=== PATIENT | female | born 1950 | race Caucasian/White ===

== ENCOUNTER 2017-10-03 11:16 | Emergency (ER) | payer BC, OTHER ==
[~2017-10-03] VITALS: Ht 160 cm; Wt 81.6 kg
[~2017-10-03 11:16] MED LIST: ASPI81TA27 PO; BACL20TA PO; CALC-437 OR; DESV50TA13 OR; GLYB2.5T8 PO; MULTCAP45 PO; MULTTAB61 PO; OMEP20CA74 PO; PROP60CA8 PO
[2017-10-03 11:32] VITALS: BP 146/89
== END 2017-10-03 13:11 | disposition home or self-care (01) ==
LOC: ER 11:16
DX: H10.31 Unspecified acute conjunctivitis, right eye (principal); J02.9 Acute pharyngitis, unspecified; E11.9 Type 2 diabetes mellitus without complications; I10 Essential (primary) hypertension; Z90.49 Acquired absence of other specified parts of digestive tract

== ENCOUNTER 2018-05-18 15:55 | Emergency (ER) | payer OTHER ==
[~2018-05-18] VITALS: Ht 160 cm; Wt 79.4 kg
[~2018-05-18 15:55] MED LIST changes: +PROP60CA34 PO; -PROP60CA8 PO
[2018-05-18 16:43] LABS: Basophils # (auto) 0 uL; Basophils % (auto) 0.2 % (0.0-2.0); Eosinophils # (auto) 0.1 uL; Eosinophils % (auto) 1.3 % (0.0-7.0); Hematocrit 46.9 % (36.0-46.0); Hemoglobin 16.1 g/dL (12.2-16.2); Lymphocytes # (auto) 1.1 uL; Lymphocytes % (auto) 17.8 % (10.0-50.0); Mean Corpuscular Hemoglobin 30.4 pg (28.0-32.0); Mean Corpuscular Hgb Conc. 34.4 g/dL (32.0-36.0); Mean Corpuscular Volume 88.3 fL (80.0-100.0); Monocytes # (auto) 0.5 uL; Monocytes % (auto) 8.3 % (0.0-12.0); Neutrophils # (auto) 4.6 uL; Neutrophils % (auto) 72.4 % (37.0-80.0); Nucleated Red Blood Cells % 0.1 %; Platelet Count (auto) 99 10^3/uL (140-450); Red Cell Distribution Width 14.3 % (11.8-14.3); White Blood Cell 6.3 10^3/uL (4.4-10.8)
[2018-05-18 16:59] LABS: Alanine Aminotransferase 63 U/L (13-56); Albumin 3.5 g/dL (3.4-5.0); Anion Gap 9 (5-15); Aspartate Aminotransferase 52 U/L (15-37); Blood Urea Nitrogen 11 mg/dL (7-18); Calcium 8.5 mg/dL (8.5-10.1); Carbon Dioxide 21 mmol/L (21-32); Chloride 108 mmol/L (98-107); GFR African American 126 mL/min; GFR Non-African American 104 mL/min; Glucose 154 mg/dL (74-106); Magnesium 2.3 mg/dL (1.6-2.6); Potassium 4.1 mmol/L (3.5-5.1); Sodium 138 mmol/L (136-145)
[2018-05-18 17:04] LABS: Alkaline Phosphatase 74 U/L (45-117); Bilirubin, Total 0.7 mg/dL (0.2-1.0); Total Protein 8.4 g/dL (6.4-8.2)
[2018-05-18 17:09] LABS: Urine Bacteria MANY /hpf (None Seen); Urine Blood 1+ /uL (Negative); Urine Specific Gravity 1.015 (1.001-1.035); Urine WBC 16 /hpf (0 - 5)
[2018-05-18] MEDS ORDERED: cefTRIAXone SOD 1,000 MG VL IM ONE (17:30)
[2018-05-18] MEDS ORDERED: LIDOCAINE 1% HCL (LOCAL ANESTH.) INJ 20ML MDV ONE (17:37)
[2018-05-18] MEDS ORDERED: LIDOCAINE 1% HCL (LOCAL ANESTH.) INJ 20ML MDV IJ ONE (18:00)
[2018-05-18 18:27] VITALS: BP 157/99
== END 2018-05-18 18:30 | disposition home or self-care (01) ==
LOC: ER 15:56
DX: J40 Bronchitis, not specified as acute or chronic (principal); N39.0 Urinary tract infection, site not specified; E11.9 Type 2 diabetes mellitus without complications; I10 Essential (primary) hypertension; Z90.49 Acquired absence of other specified parts of digestive tract
CPT/HCPCS: 36415; 71045; 80053; 81001; 83735; 84484; 85025; 93005; 96372; 99284; J0696; J2001

== ENCOUNTER 2019-02-13 06:10 | Inpatient (IN) | payer OTHER, MEDICARE ==
[~2019-02-13] VITALS: Ht 160 cm; Wt 79.8 kg
[~2019-02-13 06:10] MED LIST changes: +ASPI-404 PO; -ASPI81TA27 PO
[2019-02-13] MEDS ORDERED: SODIUM CHLORIDE 0.9% 1,000 ML IV ONE (07:13)
[2019-02-13] MEDS ORDERED: methylPREDNISolone SOD SUCC 125 MG/2 ML VL IV ONE (07:15)
[2019-02-13 08:00] LABS: Albumin 3.5 g/dL (3.4-5.0); Anion Gap 6 (5-15); Blood Urea Nitrogen 11 mg/dL (7-18); Calcium 8.8 mg/dL (8.5-10.1); Carbon Dioxide 22 mmol/L (21-32); Chloride 107 mmol/L (98-107); Glucose 154 mg/dL (74-106); Potassium 4.5 mmol/L (3.5-5.1); Sodium 135 mmol/L (136-145)
[2019-02-13 08:03] LABS: Alanine Aminotransferase 91 U/L (13-56); Aspartate Aminotransferase 102 U/L (15-37); BUN/Creatinine Ratio 15.1; GFR African American 102 mL/min; GFR Non-African American 85 mL/min
[2019-02-13 08:09] LABS: Alkaline Phosphatase 72 U/L (45-117); Bilirubin, Total 0.9 mg/dL (0.2-1.0); Total Protein 8.1 g/dL (6.4-8.2)
[2019-02-13 08:47] LABS: Basophils # (auto) 0 uL; Basophils % (auto) 0.3 % (0.0-2.0); Eosinophils # (auto) 0.3 uL; Eosinophils % (auto) 4.9 % (0.0-7.0); Hematocrit 43.5 % (36.0-46.0); Hemoglobin 14.7 g/dL (12.2-16.2); Lymphocytes # (auto) 1.2 uL; Lymphocytes % (auto) 20.2 % (10.0-50.0); Mean Corpuscular Hemoglobin 30.5 pg (28.0-32.0); Mean Corpuscular Hgb Conc. 33.7 g/dL (32.0-36.0); Mean Corpuscular Volume 90.5 fL (80.0-100.0); Monocytes # (auto) 0.6 uL; Monocytes % (auto) 10.9 % (0.0-12.0); Neutrophils # (auto) 3.7 uL; Neutrophils % (auto) 63.7 % (37.0-80.0); Platelet Count (auto) 75 10^3/uL (140-450); Red Blood Cells 4.81 10^6/uL (4.0-5.20); White Blood Cell 5.8 10^3/uL (4.4-10.8)
[2019-02-13 08:55] LABS: Urine Bacteria FEW /hpf (None Seen); Urine Blood Negative /uL (Negative); Urine Mucus FEW (None Seen); Urine Specific Gravity 1.018 (1.001-1.035); Urine WBC 5 /hpf (0 - 5)
[2019-02-13 09:03] LABS: INR 1.08 (0.9-1.15); Partial Thromboplastin Time 24.8 sec (23.64-32.05)
[2019-02-13] MEDS ORDERED: IOHEXOL 350 MG/ML 100ML IJ ONE (11:03)
[2019-02-13] MEDS ORDERED: ACETAMINOPHEN 325 MG TAB PO ONE (13:45)
[2019-02-13] MEDS ORDERED: cefTRIAXone 1GM/50ML D5W 50 ML IV ONE (14:00)
[2019-02-13] MEDS ORDERED: HYDROcodone-ACET 5/325MG TAB PO PRN (15:45)
[2019-02-13] MEDS ORDERED: MORPHINE SULF INJ 2 MG/ML SYRINGE 1ML IV PRN ×2 (15:45)
[2019-02-13] MEDS ORDERED: ONDANSETRON HCL 4 MG/2 ML VIAL IV PRN (15:45)
[2019-02-13] MEDS ORDERED: ACETAMINOPHEN 500 MG TAB PO PRN (15:45)
[2019-02-13] MEDS ORDERED: NITROGLYCERIN 0.4 MG SL TAB SL PRN (15:45)
[2019-02-13] MEDS ORDERED: DEXTROSE (50%) 50ML SYRG IV PRN (15:45)
[2019-02-13] MEDS: AZITHROMYCIN 500MG/ 250ML 250 ML IV SCH (15:51)
[2019-02-13] MEDS: SODIUM CHLORIDE 0.9% 1,000 ML IV SCH ×2 (15:54→17:13)
[2019-02-13 16:40] VITALS: BP 122/74
--- NOTE | 2019-02-13 16:45 | NUR ---
Telemetry admit from ER ANTIONETTE THAKKAR admitted to Telemetry unit after SBAR received. Patient oriented to Felicia Stapleton primary RN, unit, room, bed, and unit policies regarding patient care and visiting hours. Patient now on continuous telemetry monitoring, tele box # 64 and telemetry reading on arrival to unit is SR 91. Patient placed on bedside oxygen @ 4L via NC, weighed by bedscale and encouraged to call if they need something. All questions and concerns addressed, patient verbalized understanding. vs 133/82, p 92, rr16, O2 96%, no c/o pain
[2019-02-13] MEDS: InsuLIN REG 1unit/0.01ml Soln (100units/ml) SC SCH ×2 (17:00→21:40)
--- NOTE | 2019-02-13 17:00 | NUR ---
SKIN ASSESSED PATIENT SACRUM, NOTED ADULT DEPENDS AND BLANCHABLE REDNESS, PATIENT INFORMED OUR [facility] POLICY DOES NOT PERMIT ADULT DIAPERS DUE TO SKIN BREAKDOWN, PATIENT VERBALIZED UNDERSTANDING, PATIENT ALSO INSTRUCTED TI TURN SELF Q3HR TO AVOID PRESSURE ULCERS, PATIENT ABLE TO DEMONSTRATE HOW TO TURN SELF, CONT CARE
[2019-02-13] MEDS: ACCU-CHEK COMFORT CURVE STRIP VI SCH ×2 (17:13→21:39)
[2019-02-13 17:37] VITALS: BP 133/82
[2019-02-13] MEDS: IPRATROPIUM BROM 0.5 MG/2.5ML INH SOL NEB SCH (18:00)
[2019-02-13] MEDS: ALBUTEROL SULF 2.5 MG/0.5ML(0.5%) NEB SOLN NEB SCH (18:00)
--- NOTE | 2019-02-13 19:00 | NUR ---
Opening Shift Note Assumed care of patient, awake and alert. No S/S of distress/SOB or pain. Instructed on POC and to call for assist PRN, will continue to monitor for changes Q1hr and PRN.
--- NOTE | 2019-02-13 19:45 | NUR ---
PT REFUSED MED NEB TX AT THIS TIME. SPO2 90% ON 4L NC, HR 94. PT DENIES RESPIRATORY DISTRESS AT THIS TIME. WILL CONTINUE WITH NEXT SCHEDULED TX.
--- NOTE | 2019-02-13 20:01 | NUR ---
Dr. Li at patient bedside with patient and patient's .
[2019-02-13] MEDS ORDERED: LORazepam 2MG/ML-1ML VIAL IV PRN (20:30)
[2019-02-13 21:00] VITALS: BP 95/75
[2019-02-13] MEDS: VENLAFAXINE HCL 37.5MG TABLET PO SCH (21:39)
[2019-02-13] MEDS ORDERED: BACLOFEN 10 MG TAB PO SCH (22:00)
[2019-02-14 05:23] LABS: Basophils # (auto) 0 uL; Basophils % (auto) 0.2 % (0.0-2.0); Eosinophils # (auto) 0 uL; Eosinophils % (auto) 0.2 % (0.0-7.0); Hematocrit 43.3 % (36.0-46.0); Hemoglobin 14.6 g/dL (12.2-16.2); Lymphocytes # (auto) 1.5 uL; Mean Corpuscular Hemoglobin 30.4 pg (28.0-32.0); Mean Corpuscular Hgb Conc. 33.7 g/dL (32.0-36.0); Mean Corpuscular Volume 90.3 fL (80.0-100.0); Monocytes # (auto) 0.8 uL; Monocytes % (auto) 10.4 % (0.0-12.0); Neutrophils % (auto) 68.2 % (37.0-80.0); Nucleated Red Blood Cells % 0.1 %; Platelet Count (auto) 95 10^3/uL (140-450); Red Blood Cells 4.79 10^6/uL (4.0-5.20); Red Cell Distribution Width 15.1 % (11.8-14.3); White Blood Cell 7.3 10^3/uL (4.4-10.8)
[2019-02-14 05:59] LABS: Calcium 8.5 mg/dL (8.5-10.1)
[2019-02-14 06:00] LABS: Cholesterol 111 mg/dL (< 200); Triglycerides 96 mg/dL (< 150)
[2019-02-14 06:01] LABS: BUN/Creatinine Ratio 26.3
[2019-02-14 06:03] LABS: HDL Cholesterol 50 mg/dL (40-59); LDL Cholesterol 49 mg/dL (< 100)
[2019-02-14] MEDS: ACCU-CHEK COMFORT CURVE STRIP VI SCH ×4 (06:39→21:13)
[2019-02-14] MEDS: InsuLIN REG 1unit/0.01ml Soln (100units/ml) SC SCH ×4 (06:39→21:13)
[2019-02-14] MEDS: ALBUTEROL SULF 2.5 MG/0.5ML(0.5%) NEB SOLN NEB SCH ×2 (06:41→11:47)
[2019-02-14] MEDS: IPRATROPIUM BROM 0.5 MG/2.5ML INH SOL NEB SCH ×2 (06:41→11:47)
[2019-02-14 08:55] VITALS: BP 131/90
[2019-02-14] MEDS ORDERED: cefTRIAXone 1GM/50ML D5W 50 ML IV SCH (09:00)
[2019-02-14] MEDS: VENLAFAXINE HCL 37.5MG TABLET PO SCH ×2 (09:11→21:12)
[2019-02-14] MEDS: FAMOTIDINE 20 MG TAB PO SCH (09:11)
[2019-02-14] MEDS: AZITHROMYCIN 500MG/ 250ML 250 ML IV SCH (09:11)
[2019-02-14] MEDS: ASPirin-EC 81 mg tab PO SCH (09:11)
--- NOTE | 2019-02-14 09:20 | NUR ---
Spouse at bedside.
[2019-02-14] MEDS ORDERED: PROPRANOLOL HCL 40 MG PO SCH (10:00)
--- NOTE | 2019-02-14 10:30 | NUR ---
PT DECLINED P.T. ATTEMPT P.T. LATER.
--- NOTE | 2019-02-14 11:15 | NUR ---
I/S incentive spirometer given and patient instructed on its use. Return demonstration provided by patient.
[2019-02-14] MEDS: SODIUM CHLORIDE 0.9% 1,000 ML IV SCH ×2 (12:04→21:45)
[2019-02-14] MEDS ORDERED: GADOPENTETATE DIMEGLUMINE (10MMOL/20 ML) VIAL IV ONE (12:27)
--- NOTE | 2019-02-14 12:50 | NUR ---
Off Unit Patient left unit in wheelchair with calibration laboratory technician for MRI.
--- NOTE | 2019-02-14 14:40 | NUR ---
On Unit Patient returned to unit after completing MRI. No obvious distress or complaints of pain. Spouse at bedside.
--- NOTE | 2019-02-14 15:00 | NUR ---
Oxygen Saturation Patient to walk with PT and have O2 saturation checked. If saturation falls below 92% MD (Dr. Etienne) requesting to be called. Patient refused PT earlier, when therapist returned patient was off the unit.
[2019-02-14 17:00] VITALS: BP 149/80
--- NOTE | 2019-02-14 19:02 | NUR ---
Care endorsed to manufacturing supervisor 2nd shift RN
--- NOTE | 2019-02-14 19:25 | NUR ---
assumed care, pt. awake, relative at bedside, pt. sitting on bed, brushing her teeth, no c/o pain, no sob.
[2019-02-14] MEDS: PROPRANOLOL HCL 20 MG TAB PO SCH (21:13)
[2019-02-14 21:19] VITALS: BP 138/61
[2019-02-15] MEDS: SODIUM CHLORIDE 0.9% 1,000 ML IV SCH ×2 (00:53→17:45)
[2019-02-15 05:31] VITALS: BP 143/85
[2019-02-15] MEDS: ACCU-CHEK COMFORT CURVE STRIP VI SCH ×2 (06:00→11:17)
[2019-02-15] MEDS: InsuLIN REG 1unit/0.01ml Soln (100units/ml) SC SCH ×3 (06:00→17:00)
[2019-02-15] MEDS: IPRATROPIUM BROM 0.5 MG/2.5ML INH SOL NEB SCH ×2 (06:34→12:09)
[2019-02-15] MEDS: ALBUTEROL SULF 2.5 MG/0.5ML(0.5%) NEB SOLN NEB SCH ×2 (06:34→12:09)
--- NOTE | 2019-02-15 07:20 | NUR ---
Opening Shift Note Assumed care of patient, awake and alert. No S/S of distress/SOB or pain. Instructed on POC and to call for assist PRN, will continue to monitor for changes Q1hr and PRN. Bed locked in lowest position with tow side rails up and call light in reach.
[2019-02-15 08:00] VITALS: BP 136/79
[2019-02-15] MEDS ORDERED: cefTRIAXone 1GM/50ML D5W 50 ML IV SCH (09:00)
[2019-02-15] MEDS ORDERED: JANUVIA 100MG TABLET PO SCH (10:00)
[2019-02-15] MEDS: ASPirin-EC 81 mg tab PO SCH (10:50)
[2019-02-15] MEDS: PROPRANOLOL HCL 20 MG TAB PO SCH (10:50)
[2019-02-15] MEDS: AZITHROMYCIN 500MG/ 250ML 250 ML IV SCH (10:50)
[2019-02-15] MEDS: VENLAFAXINE HCL 37.5MG TABLET PO SCH (10:51)
[2019-02-15] MEDS: FAMOTIDINE 20 MG TAB PO SCH (10:51)
--- NOTE | 2019-02-15 11:04 | NUR ---
PATIENT AMBULATING IN HALLWAY WITH PT MARINA. CHECKED OXYGENATION SATURATION UPON RETURNING TO BED AND O2 SAT READ 96-97% WILL CONTINUE TO MONITOR, AND REPORT READING TO DOCTOR WHEN HE ROUNDS. PER REPORT ONLY CALL DR CASTELAN IF READING IS LESS THAT 92%.
[2019-02-15 12:48] VITALS: BP 129/76
[2019-02-15 16:57] VITALS: BP 133/81
--- NOTE | 2019-02-15 18:20 | NUR ---
PATIENT CLEARED BY DR ROSAS
--- NOTE | 2019-02-15 18:54 | NUR ---
Discharge instructions given as ordered. Encourage to follow up with PMD as instructed. All questions and concerns addressed. Patient verbalized understanding. Medication reconciliation form completed and copy given to patient. Home medications held in Pharmacy returned to patient, and no needed vaccines to given. IV removed with catheter intact, pressure dressing applied. Telemetry unit returned to ICU. Patient taken to vehicle via wheelchair with all personal belongings, accompanied by staff and family member. No distress noted at time of departure. Patient had prescriptions in hand.
== END 2019-02-15 18:50 | disposition home or self-care (01) | DRG 689 ==
LOC: EDBD 06:10 → ER 06:15 → TELE 06:16 → TELE-WESTW 16:53
PROVIDERS: ADMIT Nurse Practitioner Acute Care; ATTEND Internal Medicine
DX: N39.0 Urinary tract infection, site not specified (principal); J18.9 Pneumonia, unspecified organism; J98.11 Atelectasis; K74.60 Unspecified cirrhosis of liver; G35 Multiple sclerosis; E11.9 Type 2 diabetes mellitus without complications; K21.9 Gastro-esophageal reflux disease without esophagitis; F32.9 Major depressive disorder, single episode, unspecified; E66.9 Obesity, unspecified; I10 Essential (primary) hypertension; Z79.84 Long term (current) use of oral hypoglycemic drugs; Z68.31 Body mass index [BMI] 31.0-31.9, adult; Z90.49 Acquired absence of other specified parts of digestive tract
CPT/HCPCS: 36415; 70553; 71045; 71275; 72142; 80048; 80053; 80061; 81001; 82962; 83036; 83605; 83735; 83880; 84443; 84484; 85025; 85379; 85610; 85652; 85730; 86141; 87040; 87804; 93005; 94640; 94761; 96361; 96365; 96366; 96375; G0378; J0696

== ENCOUNTER 2021-09-16 11:28 | Inpatient (IN) | payer MEDICARE, OTHER ==
[~2021-09-16] VITALS: Ht 160 cm; Wt 77.1 kg
[~2021-09-16 11:28] MED LIST changes: -ASPI-404 PO; +ASPI-543 PO; -MULTTAB61 PO
[2021-09-16 12:30] LABS: Basophils # (auto) 0 10 ^3/uL (0-0.2); Basophils % (auto) 0.1 % (0.0-2.0); Eosinophils # (auto) 0 10 ^3/uL (0-0.8); Eosinophils % (auto) 0.5 % (0.0-7.0); Hematocrit 43.7 % (36.0-46.0); Hemoglobin 14.7 g/dL (12.2-16.2); Lymphocytes # (auto) 0.4 10 ^3/uL (0.4-5.4); Lymphocytes % (auto) 9.7 % (10.0-50.0); Mean Corpuscular Hemoglobin 28.5 pg (28.0-32.0); Mean Corpuscular Hgb Conc. 33.8 g/dL (32.0-36.0); Mean Corpuscular Volume 84.6 fL (80.0-100.0); Monocytes # (auto) 0.1 10 ^3/uL (0-1.3); Monocytes % (auto) 3.5 % (0.0-12.0); Neutrophils # (auto) 3.3 10 ^3/uL (1.6-8.6); Neutrophils % (auto) 86.2 % (37.0-80.0); Nucleated Red Blood Cells % 0.1 %; Red Blood Cells 5.16 10^6/uL (4.0-5.20); Red Cell Distribution Width 16.4 % (11.8-14.3); White Blood Cell 3.9 10^3/uL (4.4-10.8)
[2021-09-16 12:44] LABS: Albumin 3.4 g/dL (3.4-5.0); Calcium 9.1 mg/dL (8.5-10.1); Potassium 4.2 mmol/L (3.5-5.1)
[2021-09-16 12:49] LABS: BUN/Creatinine Ratio 24.1; Bilirubin, Total 1.1 mg/dL (0.2-1.0); Total Protein 8.2 g/dL (6.4-8.2)
[2021-09-16] MEDS ORDERED: DOCUSATE SOD 100 MG CAP PO PRN (17:30)
[2021-09-16] MEDS ORDERED: ONDANSETRON HCL 4 MG/2 ML VIAL IV PRN (17:30)
[2021-09-16] MEDS: SODIUM CHLORIDE 0.9% 1,000 ML IV SCH (17:50)
[2021-09-16] MEDS: PANTOPRAZOLE 40 MG/10 ML VIAL INJ IV SCH (21:19)
[2021-09-16] MEDS: metroNIDAZOLE 500MG/100ML 100 ML IV SCH (21:20)
[2021-09-16] MEDS ORDERED: DEXTROSE (50%) 50ML SYRG IV PRN (21:30)
[2021-09-16] MEDS ORDERED: SITA100T7 PO (21:45)
[2021-09-16] MEDS ORDERED: PROP40TA59 PO (21:46)
[2021-09-16] MEDS ORDERED: VENL-222 PO (21:46)
[2021-09-16] MEDS ORDERED: LATA0.0019 EACHEYE (21:46)
[2021-09-16 22:00] VITALS: BP 93/114
[2021-09-16] MEDS ORDERED: InsuLIN REG 1unit/0.01ml Soln (100units/ml) SC SCH (22:00)
[2021-09-16] MEDS: ACCU-CHEK COMFORT CURVE STRIP VI SCH (22:37)
[2021-09-16] MEDS: CEFTRIAXONE SODIUM 2 GM in D5W 5% 50 ML IV SCH (22:47)
[2021-09-17] MEDS: SODIUM CHLORIDE 0.9% 1,000 ML IV SCH ×2 (04:12→13:30)
[2021-09-17 05:00] VITALS: BP 116/66
[2021-09-17] MEDS: metroNIDAZOLE 500MG/100ML 100 ML IV SCH ×2 (06:00→14:00)
[2021-09-17 06:10] LABS: Basophils # (auto) 0 10 ^3/uL (0-0.2); Basophils % (auto) 0.2 % (0.0-2.0); Eosinophils # (auto) 0 10 ^3/uL (0-0.8); Eosinophils % (auto) 0.5 % (0.0-7.0); Hematocrit 37.5 % (36.0-46.0); Hemoglobin 12.6 g/dL (12.2-16.2); Lymphocytes # (auto) 0.8 10 ^3/uL (0.4-5.4); Mean Corpuscular Hemoglobin 28.8 pg (28.0-32.0); Mean Corpuscular Hgb Conc. 33.6 g/dL (32.0-36.0); Mean Corpuscular Volume 85.6 fL (80.0-100.0); Monocytes # (auto) 0.4 10 ^3/uL (0-1.3); Monocytes % (auto) 15.3 % (0.0-12.0); Neutrophils # (auto) 1.2 10 ^3/uL (1.6-8.6); Red Blood Cells 4.38 10^6/uL (4.0-5.20); White Blood Cell 2.4 10^3/uL (4.4-10.8)
[2021-09-17 06:17] LABS: Potassium 3.4 mmol/L (3.5-5.1)
[2021-09-17 06:22] LABS: Albumin 2.7 g/dL (3.4-5.0); BUN/Creatinine Ratio 23.6; Calcium 8.2 mg/dL (8.5-10.1)
[2021-09-17 06:25] LABS: Bilirubin, Total 0.6 mg/dL (0.2-1.0); Total Protein 7.1 g/dL (6.4-8.2)
[2021-09-17] MEDS: ACCU-CHEK COMFORT CURVE STRIP VI SCH ×3 (06:27→17:00)
[2021-09-17] MEDS: InsuLIN REG 1unit/0.01ml Soln (100units/ml) SC SCH ×3 (06:52→17:00)
[2021-09-17 09:00] VITALS: BP 125/64
[2021-09-17] MEDS: PANTOPRAZOLE 40 MG/10 ML VIAL INJ IV SCH (09:59)
[2021-09-17] MEDS ORDERED: PROPRANOLOL HCL 20 MG TAB PO SCH (10:00)
[2021-09-17] MEDS ORDERED: ENOXAPARIN SOD 40 MG/0.4 ML SYRINGE SC SCH (10:00)
[2021-09-17 13:00] VITALS: BP 104/50
[2021-09-17 17:00] VITALS: BP 111/51
[2021-09-17] MEDS ORDERED: ACETAMINOPHEN 500 MG TAB PO PRN (17:45)
[2021-09-17] MEDS ORDERED: POTASSIUM CHL 20 Meq TABLET PO ONE (17:45)
[2021-09-17] MEDS: CEFTRIAXONE SODIUM 2 GM in D5W 5% 50 ML IV SCH (18:00)
[2021-09-17 20:22] VITALS: BP 111/51
== END 2021-09-17 21:00 | disposition home or self-care (01) | DRG 392 ==
LOC: ER 11:28 → EDBD 11:28 → EDUNIT# 11:28 → OVERFLOW 17:27 → EAST 20:23
PROVIDERS: ADMIT Internal Medicine; ATTEND Internal Medicine
DX: A08.4 Viral intestinal infection, unspecified (principal); K74.60 Unspecified cirrhosis of liver; E11.9 Type 2 diabetes mellitus without complications; I10 Essential (primary) hypertension; F32.A Depression, unspecified; E66.01 Morbid (severe) obesity due to excess calories; Z20.822 Contact with and (suspected) exposure to COVID-19; G35 Multiple sclerosis; K21.9 Gastro-esophageal reflux disease without esophagitis; N20.0 Calculus of kidney; N28.1 Cyst of kidney, acquired; Z68.30 Body mass index [BMI] 30.0-30.9, adult; Z90.49 Acquired absence of other specified parts of digestive tract
CPT/HCPCS: 36415; 70450; 71045; 74176; 80053; 82140; 82962; 83735; 84484; 85025; 93005; 96360; C9113; G0378; J0696; J1815; J3490; J7060

== ENCOUNTER 2022-04-08 04:30 | Inpatient (IN) | payer OTHER ==
[~2022-04-08] VITALS: Ht 160 cm; Wt 77.9 kg
[~2022-04-08 04:30] MED LIST changes: -ASPI-543 PO; -BACL20TA PO; -DESV50TA13 OR; -GLYB2.5T8 PO; +LATA0.0019 EACHEYE; +PROP40TA59 PO; -PROP60CA34 PO; +SITA100T7 PO; +VENL-222 PO
[2022-04-08] MEDS ORDERED: SODIUM CHLORIDE 0.9% 250 ML IV ONE (07:00)
[2022-04-08 07:21] LABS: Potassium 4.2 mmol/L (3.5-5.1)
[2022-04-08 07:37] LABS: Albumin 3.1 g/dL (3.4-5.0); BUN/Creatinine Ratio 20.8; Calcium 9.4 mg/dL (8.5-10.1); Total Protein 7.4 g/dL (6.4-8.2)
[2022-04-08 08:29] LABS: Basophils # (auto) 0 10 ^3/uL (0-0.2); Eosinophils # (auto) 0 10 ^3/uL (0-0.8); Hemoglobin 11.5 g/dL (12.2-16.2); Lymphocytes # (auto) 1.1 10 ^3/uL (0.4-5.4); Monocytes # (auto) 0.8 10 ^3/uL (0-1.3); Neutrophils # (auto) 6.3 10 ^3/uL (1.6-8.6); Nucleated Red Blood Cells % 0.1 %; Red Cell Distribution Width 16.8 % (11.8-14.3); White Blood Cell 8.2 10^3/uL (4.4-10.8)
[2022-04-08 08:30] LABS: Basophils % (auto) 0.1 % (0.0-2.0); Eosinophils % (auto) 0.4 % (0.0-7.0); Hematocrit 35.5 % (36.0-46.0); Lymphocytes % (auto) 12.9 % (10.0-50.0); Mean Corpuscular Hemoglobin 26.6 pg (28.0-32.0); Mean Corpuscular Hgb Conc. 32.4 g/dL (32.0-36.0); Mean Corpuscular Volume 82.1 fL (80.0-100.0); Monocytes % (auto) 9.2 % (0.0-12.0); Neutrophils % (auto) 77.4 % (37.0-80.0); Red Blood Cells 4.32 10^6/uL (4.0-5.20)
[2022-04-08] MEDS ORDERED: methylPREDNISolone SOD SUCC 125 MG/2 ML VL IV ONE (08:45)
[2022-04-08 10:47] LABS: Urine Bacteria NONE SEEN /hpf (None Seen); Urine Blood Negative /uL (Negative); Urine Specific Gravity 1.025 (1.001-1.035); Urine WBC 5 /hpf (0 - 5)
[2022-04-08] MEDS ORDERED: MORPHINE SULFATE INJ 2 MG/ml SYRG IV PRN (11:15)
[2022-04-08] MEDS ORDERED: HYDROcodone-ACET 5/325MG TAB PO PRN (11:15)
[2022-04-08] MEDS ORDERED: ONDANSETRON HCL 4 MG/2 ML VIAL IV PRN (11:15)
[2022-04-08] MEDS ORDERED: DOCUSATE SOD 100 MG CAP PO PRN (11:15)
[2022-04-08] MEDS ORDERED: DEXTROSE (50%) 50ML SYRG IV PRN (17:45)
[2022-04-08] MEDS ORDERED: LORazepam 2MG/ML-1ML VIAL IV PRN (18:15)
[2022-04-08] MEDS ORDERED: methylPREDNISolone SOD SUCC 40 MG/ML VL IV SCH (20:00)
[2022-04-08] MEDS: ACCU-CHEK COMFORT CURVE STRIP VI SCH (22:09)
[2022-04-08] MEDS: LATANOPROST 0.005 % OPTH(EYE) SOL 2.5ML EACHEYE SCH (22:13)
[2022-04-08] MEDS: methylPREDNISolone SOD SUCC 1,000 MG in SODIUM CHL 0.9% 250 ML IV SCH (22:13)
[2022-04-08] MEDS: InsuLIN REG 1unit/0.01ml Soln (100units/ml) SC SCH (23:09)
[2022-04-08] MEDS: PROPRANOLOL HCL 20 MG TAB PO SCH (23:38)
[2022-04-09 06:58] LABS: Basophils # (auto) 0 10 ^3/uL (0-0.2); Basophils % (auto) 0.2 % (0.0-2.0); Eosinophils # (auto) 0 10 ^3/uL (0-0.8); Lymphocytes # (auto) 0.9 10 ^3/uL (0.4-5.4); Monocytes % (auto) 2.7 % (0.0-12.0); Nucleated Red Blood Cells % 0.1 %; Red Cell Distribution Width 16.9 % (11.8-14.3)
[2022-04-09 07:00] LABS: Hematocrit 33.6 % (36.0-46.0); Hemoglobin 11.1 g/dL (12.2-16.2); Lymphocytes % (auto) 15.9 % (10.0-50.0); Mean Corpuscular Hemoglobin 26.9 pg (28.0-32.0); Mean Corpuscular Volume 81.4 fL (80.0-100.0); Monocytes # (auto) 0.2 10 ^3/uL (0-1.3); Neutrophils # (auto) 4.6 10 ^3/uL (1.6-8.6); Neutrophils % (auto) 81.2 % (37.0-80.0); Red Blood Cells 4.13 10^6/uL (4.0-5.20); White Blood Cell 5.7 10^3/uL (4.4-10.8)
[2022-04-09] MEDS: ACCU-CHEK COMFORT CURVE STRIP VI SCH ×4 (07:01→21:11)
[2022-04-09 07:14] LABS: Albumin 2.8 g/dL (3.4-5.0); Calcium 8.7 mg/dL (8.5-10.1); Potassium 4.2 mmol/L (3.5-5.1)
[2022-04-09 07:17] LABS: BUN/Creatinine Ratio 26.9; Bilirubin, Total 0.9 mg/dL (0.2-1.0); Total Protein 7.6 g/dL (6.4-8.2)
[2022-04-09] MEDS: InsuLIN REG 1unit/0.01ml Soln (100units/ml) SC SCH ×4 (07:18→21:19)
[2022-04-09] MEDS ORDERED: GADOTERATE MEG 10 MMOL/20ml INJ (0.5MMOL/ml) IV ONE (09:56)
[2022-04-09] MEDS ORDERED: ENOXAPARIN SOD 40 MG/0.4 ML SYRINGE SC SCH (10:00)
[2022-04-09] MEDS ORDERED: FAMOTIDINE 20 MG TAB PO SCH (10:00)
[2022-04-09] MEDS: MULTIPLE VITAMIN TAB PO SCH (11:06)
[2022-04-09] MEDS: VENLAFAXINE HCL 37.5mg XR cap PO SCH (11:07)
[2022-04-09] MEDS: PROPRANOLOL HCL 20 MG TAB PO SCH ×2 (11:08→21:10)
[2022-04-09] MEDS: CALCIUM PO SCH (11:09)
[2022-04-09] MEDS: [UNRECOGNIZED DRUG - OTHER] PO SCH (11:09)
[2022-04-09] MEDS: VITAMINS D PO SCH (11:09)
[2022-04-09 17:00] VITALS: BP 134/69
[2022-04-09] MEDS: methylPREDNISolone SOD SUCC 1,000 MG in SODIUM CHL 0.9% 250 ML IV SCH (20:00)
[2022-04-09] MEDS: FAMOTIDINE 20 MG TAB PO SCH (21:10)
[2022-04-09] MEDS: LATANOPROST 0.005 % OPTH(EYE) SOL 2.5ML EACHEYE SCH (21:10)
[2022-04-09 22:00] VITALS: BP 137/64
[2022-04-10 05:00] VITALS: BP 112/64
[2022-04-10] MEDS: ACCU-CHEK COMFORT CURVE STRIP VI SCH ×4 (06:18→22:10)
[2022-04-10] MEDS: InsuLIN REG 1unit/0.01ml Soln (100units/ml) SC SCH ×4 (06:18→22:19)
[2022-04-10 09:00] VITALS: BP 140/78
[2022-04-10] MEDS: MULTIPLE VITAMIN TAB PO SCH (09:59)
[2022-04-10] MEDS: VENLAFAXINE HCL 37.5mg XR cap PO SCH (09:59)
[2022-04-10] MEDS: FAMOTIDINE 20 MG TAB PO SCH ×2 (09:59→22:09)
[2022-04-10] MEDS: VITAMINS D PO SCH (10:00)
[2022-04-10] MEDS: [UNRECOGNIZED DRUG - OTHER] PO SCH (10:00)
[2022-04-10] MEDS: CALCIUM PO SCH (10:00)
[2022-04-10] MEDS: PROPRANOLOL HCL 20 MG TAB PO SCH ×2 (10:01→22:09)
[2022-04-10 13:00] VITALS: BP 142/69
[2022-04-10 16:52] VITALS: BP 128/69
[2022-04-10] MEDS ORDERED: methylPREDNISolone SOD SUCC 1,000 MG in SODIUM CHL 0.9% 250 ML IV SCH (20:00)
[2022-04-10 22:00] VITALS: BP 134/65
[2022-04-10] MEDS: COLCHICINE 0.6 MG CAP PO SCH (22:09)
[2022-04-10] MEDS: LATANOPROST 0.005 % OPTH(EYE) SOL 2.5ML EACHEYE SCH (22:10)
[2022-04-11] MEDS: InsuLIN REG 1unit/0.01ml Soln (100units/ml) SC SCH ×4 (06:14→21:30)
[2022-04-11] MEDS: ACCU-CHEK COMFORT CURVE STRIP VI SCH ×4 (06:14→21:25)
[2022-04-11 08:30] VITALS: BP 134/74
[2022-04-11] MEDS: FAMOTIDINE 20 MG TAB PO SCH ×2 (11:21→21:24)
[2022-04-11] MEDS: MULTIPLE VITAMIN TAB PO SCH (11:21)
[2022-04-11] MEDS: VENLAFAXINE HCL 37.5mg XR cap PO SCH (11:21)
[2022-04-11] MEDS: COLCHICINE 0.6 MG CAP PO SCH (11:22)
[2022-04-11] MEDS: PROPRANOLOL HCL 20 MG TAB PO SCH ×2 (11:23→21:24)
[2022-04-11] MEDS: ENOXAPARIN SOD 40 MG/0.4 ML SYRINGE SC SCH (11:26)
[2022-04-11] MEDS: CALCIUM PO SCH (11:30)
[2022-04-11] MEDS: VITAMINS D PO SCH (11:30)
[2022-04-11] MEDS: [UNRECOGNIZED DRUG - OTHER] PO SCH (11:30)
[2022-04-11 12:30] VITALS: BP 147/79
[2022-04-11] MEDS ORDERED: methylPREDNISolone SOD SUCC 1,000 MG in SODIUM CHL 0.9% 250 ML IV SCH (16:00)
[2022-04-11 16:30] VITALS: BP 133/74
[2022-04-11] MEDS: LATANOPROST 0.005 % OPTH(EYE) SOL 2.5ML EACHEYE SCH (21:22)
[2022-04-11] MEDS: GABAPENTIN 100 MG CAP PO SCH (21:23)
[2022-04-11 22:00] VITALS: BP 156/57
[2022-04-12 05:00] VITALS: BP 119/71
[2022-04-12] MEDS: GABAPENTIN 100 MG CAP PO SCH ×2 (05:47→14:45)
[2022-04-12] MEDS: ACCU-CHEK COMFORT CURVE STRIP VI SCH ×2 (05:57→11:33)
[2022-04-12] MEDS: InsuLIN REG 1unit/0.01ml Soln (100units/ml) SC SCH ×2 (05:58→11:36)
[2022-04-12 08:00] VITALS: BP 117/76
[2022-04-12] MEDS: MULTIPLE VITAMIN TAB PO SCH (09:53)
[2022-04-12] MEDS: FAMOTIDINE 20 MG TAB PO SCH (09:53)
[2022-04-12] MEDS: VENLAFAXINE HCL 37.5mg XR cap PO SCH (09:53)
[2022-04-12] MEDS: ENOXAPARIN SOD 40 MG/0.4 ML SYRINGE SC SCH (09:53)
[2022-04-12] MEDS: PROPRANOLOL HCL 20 MG TAB PO SCH (09:54)
[2022-04-12] MEDS: VITAMINS D PO SCH (09:58)
[2022-04-12] MEDS: [UNRECOGNIZED DRUG - OTHER] PO SCH (09:58)
[2022-04-12] MEDS: CALCIUM PO SCH (09:58)
[2022-04-12 12:00] VITALS: BP 140/80
[2022-04-12] MEDS ORDERED: CALC-437 OR (12:16)
[2022-04-12] MEDS ORDERED: GAB100C PO (12:16)
[2022-04-12] MEDS ORDERED: methylPREDNISolone SOD SUCC 1,000 MG in SODIUM CHL 0.9% 250 ML IV SCH ×2 (16:00→20:00)
[2022-04-12 16:03] VITALS: BP 117/76
[2022-04-12 16:09] VITALS: BP 139/75
== END 2022-04-12 16:50 | disposition home or self-care (01) | DRG 59 ==
LOC: EDBD 04:30 → ER 04:30 → OVERFLOW 11:13 → WEST WING 04-09 13:12
PROVIDERS: ADMIT Nurse Practitioner Family; ATTEND Hospitalist
DX: G35 Multiple sclerosis (principal); E44.0 Moderate protein-calorie malnutrition; G81.91 Hemiplegia, unspecified affecting right dominant side; T50.Z95A Adverse effect of other vaccines and biological substances, initial encounter; H40.9 Unspecified glaucoma; I10 Essential (primary) hypertension; J32.4 Chronic pansinusitis; Z20.822 Contact with and (suspected) exposure to COVID-19; M21.379 Foot drop, unspecified foot; D69.6 Thrombocytopenia, unspecified; E11.42 Type 2 diabetes mellitus with diabetic polyneuropathy; Z85.3 Personal history of malignant neoplasm of breast; Z90.12 Acquired absence of left breast and nipple; Z82.49 Family history of ischemic heart disease and other diseases of the circulatory system; Z90.49 Acquired absence of other specified parts of digestive tract; Z68.30 Body mass index [BMI] 30.0-30.9, adult; Y92.89 Other specified places as the place of occurrence of the external cause
CPT/HCPCS: 36415; 70450; 70553; 71045; 73610; 80053; 81001; 82962; 83036; 83880; 84484; 84550; 85025; 87426; 93005; 93971; 96361; 96374; G0378; J1815

== ENCOUNTER 2022-04-14 23:15 | Inpatient (IN) | payer OTHER ==
[~2022-04-14] VITALS: Ht 157.5 cm; Wt 70.0 kg
[~2022-04-14 23:15] MED LIST changes: +GAB100C PO
[2022-04-15 01:41] LABS: Basophils # (auto) 0 10 ^3/uL (0-0.2); Eosinophils # (auto) 0.1 10 ^3/uL (0-0.8); Nucleated Red Blood Cells % 0.1 %; White Blood Cell 5.2 10^3/uL (4.4-10.8)
[2022-04-15 01:42] LABS: Basophils % (auto) 0.3 % (0.0-2.0); Eosinophils % (auto) 1.2 % (0.0-7.0); Hematocrit 34.5 % (36.0-46.0); Hemoglobin 11.2 g/dL (12.2-16.2); Lymphocytes # (auto) 1.6 10 ^3/uL (0.4-5.4); Lymphocytes % (auto) 31.1 % (10.0-50.0); Mean Corpuscular Hemoglobin 26.4 pg (28.0-32.0); Mean Corpuscular Hgb Conc. 32.3 g/dL (32.0-36.0); Mean Corpuscular Volume 81.7 fL (80.0-100.0); Monocytes # (auto) 0.7 10 ^3/uL (0-1.3); Monocytes % (auto) 12.6 % (0.0-12.0); Neutrophils # (auto) 2.8 10 ^3/uL (1.6-8.6); Neutrophils % (auto) 54.8 % (37.0-80.0); Red Blood Cells 4.23 10^6/uL (4.0-5.20); Red Cell Distribution Width 17.5 % (11.8-14.3)
[2022-04-15 01:51] LABS: Albumin 2.8 g/dL (3.4-5.0); BUN/Creatinine Ratio 25.4; Calcium 8.8 mg/dL (8.5-10.1); Potassium 3.4 mmol/L (3.5-5.1)
[2022-04-15 01:53] LABS: Bilirubin, Total 0.6 mg/dL (0.2-1.0)
[2022-04-15] MEDS ORDERED: IOHEXOL 300 MG/ML 100ML BOTTLE IJ ONE (03:16)
[2022-04-15 04:32] LABS: Urine Bacteria FEW /hpf (None Seen); Urine Blood 3+ /uL (Negative); Urine Mucus FEW (None Seen); Urine Specific Gravity 1.009 (1.001-1.035); Urine WBC 17 /hpf (0 - 5); Urine WBC Clumps PRESENT /hpf (None Seen)
[2022-04-15] MEDS ORDERED: POTASSIUM EFFERVESENT TAB 25 MEQ PO ONE (04:45)
[2022-04-15] MEDS ORDERED: SODIUM CHLORIDE 0.9% 500 ML IV ONE (05:15)
[2022-04-15] MEDS ORDERED: VANCOMYCIN 1GM/250ML 250 ML IV ONE (05:15)
[2022-04-15] MEDS ORDERED: cefTRIAXone 1GM/50ML D5W 50 ML IV ONE (05:30)
[2022-04-15] MEDS ORDERED: ACETAMINOPHEN 325 MG TAB PO PRN (06:00)
[2022-04-15] MEDS ORDERED: hydrALAZINE HCL 20 MG/ML VL IV PRN (06:00)
[2022-04-15] MEDS ORDERED: DOCUSATE SOD 100 MG CAP PO PRN (06:00)
[2022-04-15] MEDS ORDERED: VANCOMYCIN PER PHARMACY 0 MG IV SCH (06:00)
[2022-04-15] MEDS ORDERED: ONDANSETRON HCL 4 MG/2 ML VIAL IV PRN (06:00)
[2022-04-15] MEDS ORDERED: DEXTROSE (50%) 50ML SYRG IV PRN (06:00)
[2022-04-15] MEDS ORDERED: HYDROcodone-ACET 5/325MG TAB PO PRN (06:00)
[2022-04-15] MEDS ORDERED: MORPHINE SULFATE INJ 2 MG/ml SYRG IV PRN (06:30)
[2022-04-15] MEDS ORDERED: NITROGLYCERIN 0.4 MG SL TAB SL PRN (06:30)
[2022-04-15] MEDS: SODIUM CHLOR 0.9% PF (SALINE LOCK) 10ML VIAL/SYR IV SCH ×2 (06:53→14:21)
[2022-04-15 07:10] LABS: Basophils # (auto) 0 10 ^3/uL (0-0.2); Eosinophils # (auto) 0 10 ^3/uL (0-0.8); Eosinophils % (auto) 0.9 % (0.0-7.0); Hematocrit 36.5 % (36.0-46.0); Hemoglobin 11.5 g/dL (12.2-16.2); Lymphocytes # (auto) 1.6 10 ^3/uL (0.4-5.4); Lymphocytes % (auto) 35.7 % (10.0-50.0); Mean Corpuscular Hemoglobin 26.1 pg (28.0-32.0); Monocytes # (auto) 0.5 10 ^3/uL (0-1.3); Neutrophils # (auto) 2.3 10 ^3/uL (1.6-8.6); Neutrophils % (auto) 52.4 % (37.0-80.0); Nucleated Red Blood Cells % 0.2 %
[2022-04-15 07:13] LABS: Basophils % (auto) 0.3 % (0.0-2.0); Mean Corpuscular Hgb Conc. 31.5 g/dL (32.0-36.0); Monocytes % (auto) 10.7 % (0.0-12.0); Red Cell Distribution Width 17.8 % (11.8-14.3); White Blood Cell 4.4 10^3/uL (4.4-10.8)
[2022-04-15 07:21] LABS: Albumin 2.6 g/dL (3.4-5.0); BUN/Creatinine Ratio 22.6; Bilirubin, Total 0.9 mg/dL (0.2-1.0); Calcium 8.3 mg/dL (8.5-10.1); Potassium 4.4 mmol/L (3.5-5.1)
[2022-04-15] MEDS ORDERED: cefTRIAXone 1GM/50ML D5W 50 ML IV SCH (09:00)
[2022-04-15] MEDS: InsuLIN REG 1unit/0.01ml Soln (100units/ml) SC SCH ×3 (09:07→18:21)
[2022-04-15] MEDS: ACCU-CHEK COMFORT CURVE STRIP VI SCH ×3 (09:07→18:17)
[2022-04-15] MEDS ORDERED: ENOXAPARIN SOD 40 MG/0.4 ML SYRINGE SC SCH (10:00)
[2022-04-15] MEDS ORDERED: FAMOTIDINE (10MG/ML) 2ML VL IV SCH (10:00)
[2022-04-15] MEDS ORDERED: METOPROLOL TARTRATE 25 MG TAB PO SCH (10:00)
[2022-04-15] MEDS ORDERED: MULTIPLE VITAMIN TAB PO SCH (10:00)
[2022-04-15 18:45] VITALS: BP 158/76
[2022-04-15] MEDS ORDERED: InsuLIN REG 1unit/0.01ml Soln (100units/ml) SC SCH (22:00)
== END 2022-04-15 18:40 | disposition short-term general hospital (02) | DRG 600 ==
LOC: EDBD 23:15 → ER 23:30 → OVERFLOW 04-15 06:32
PROVIDERS: ADMIT Nurse Practitioner Family; ATTEND Internal Medicine
DX: N61.1 Abscess of the breast and nipple (principal); L03.313 Cellulitis of chest wall; N39.0 Urinary tract infection, site not specified; Z20.822 Contact with and (suspected) exposure to COVID-19; E11.9 Type 2 diabetes mellitus without complications; E88.09 Other disorders of plasma-protein metabolism, not elsewhere classified; G35 Multiple sclerosis; I10 Essential (primary) hypertension; K21.9 Gastro-esophageal reflux disease without esophagitis; Z80.9 Family history of malignant neoplasm, unspecified; Z82.49 Family history of ischemic heart disease and other diseases of the circulatory system; Z85.3 Personal history of malignant neoplasm of breast; Z90.13 Acquired absence of bilateral breasts and nipples; Z90.49 Acquired absence of other specified parts of digestive tract
CPT/HCPCS: 36415; 71260; 80053; 81001; 82962; 83605; 85025; 87040; 87086; 87426; 96365; 96367; 96372; 96375; G0378; J0696; J1815; J3490